=== PATIENT | female | born 1945 | race Caucasian/White ===

== ENCOUNTER 2022-03-11 18:34 | Inpatient (IN) | payer MEDICARE, OTHER ==
[~2022-03-11] VITALS: Ht 162.6 cm; Wt 52.6 kg
[2022-03-12 03:33] LABS: HEMOGLOBIN 12.9 gm/dl (12.3-15.3); RED BLOOD COUNT 4.34 M/UL (4.00-5.10); WHITE BLOOD COUNT 7.3 K/UL (4.5-11.0)
[2022-03-12 03:57] LABS: BUN/CREATININE RATIO 16 (0-10)
[2022-03-12] MEDS ORDERED: ALPRAZOLAM2 MG PO (10:58)
[2022-03-12] MEDS ORDERED: SUCRALFATE1 GM PO (11:01)
[2022-03-12] MEDS ORDERED: ONDANSETRON HCL4 MG PO (11:02)
[2022-03-12] MEDS ORDERED: VENLAFAXINE HCL75 M1 PO (11:03)
[2022-03-12] MEDS ORDERED: ESOMEPRAZOLE MA40 MG PO (11:03)
[2022-03-12] MEDS ORDERED: MEGACE TAB 40 M40 MG PO (11:03)
[2022-03-12] MEDS ORDERED: BENZTROPINE ME0.5 MG PO (11:04)
[2022-03-12] MEDS ORDERED: OLANZAPINE15 MG PO (11:04)
[2022-03-12] MEDS ORDERED: VITAMIN D21250 MCG PO (11:05)
[2022-03-12] MEDS ORDERED: CARVEDILOL12.5 MG PO (11:06)
[2022-03-12] MEDS ORDERED: DULOXETINE HCL30 MG PO (11:06)
[2022-03-12] MEDS ORDERED: AMLODIPINE BESYL5 MG PO (11:07)
[2022-03-13 08:22] LABS: HEMOGLOBIN 13.8 gm/dl (12.3-15.3); RED BLOOD COUNT 4.55 M/UL (4.00-5.10)
[2022-03-13 08:34] LABS: WHITE BLOOD COUNT 9.6 K/UL (4.5-11.0)
[2022-03-13 08:48] LABS: BUN/CREATININE RATIO 15 (0-10)
[2022-03-14] MEDS ORDERED: ELIQUIS 2.5 MG2.5 MG PO (09:24)
[2022-03-14] MEDS ORDERED: ROXICODONE TAB 55 MG PO (11:51)
[2022-03-14] MEDS ORDERED: ASPIRIN EC81 MG PO (11:51)
== END 2022-03-14 15:15 | disposition home health service (06) | DRG 482 ==
LOC: CCU 21:40
PROVIDERS: Internal Medicine; Internal Medicine Infectious Disease; Orthopaedic Surgery; ADMIT Internal Medicine
PROC: 0QS704Z Reposition Left Upper Femur with Internal Fixation Device, Open Approach (ICD-10-PCS; principal; 2022-03-12 16:00)
DX: S72.002A Fracture of unspecified part of neck of left femur, initial encounter for closed fracture (principal); I10 Essential (primary) hypertension; F03.90 Unspecified dementia, unspecified severity, without behavioral disturbance, psychotic disturbance, mood disturbance, and anxiety; M21.052 Valgus deformity, not elsewhere classified, left hip; W01.0XXA Fall on same level from slipping, tripping and stumbling without subsequent striking against object, initial encounter; F17.200 Nicotine dependence, unspecified, uncomplicated; E87.6 Hypokalemia; F41.9 Anxiety disorder, unspecified; Z88.8 Allergy status to other drugs, medicaments and biological substances; Z86.73 Personal history of transient ischemic attack (TIA), and cerebral infarction without residual deficits; Z90.49 Acquired absence of other specified parts of digestive tract; Z88.5 Allergy status to narcotic agent; Z82.3 Family history of stroke
CPT/HCPCS: 36415; 71045; 73502; 76000; 80048; 80053; 83735; 84132; 85025; 86850; 86900; 86901; 93005; 97116-GP-CQ; 97161; 97166; 97530; C1713; J0690; J1100; J1170; J1650; J2001; J2370; J2405; J2704; J2795; J3010; J3480; J3486; J7050